=== PATIENT | female | born 1960 | race Caucasian/White ===

== ENCOUNTER 2021-12-26 23:59 | Inpatient (IN) | payer OTHER ==
[2021-12-27] MEDS ORDERED: Zolpidem Tartrate 5 MG TAB PO PRN (00:56)
[2021-12-27] MEDS ORDERED: Senokot S 8.6-50 MG TAB PO PRN (00:56)
[2021-12-27] MEDS ORDERED: Calcium Carbonate 500 MG ChewTAB PO PRN (00:56)
[2021-12-27] MEDS ORDERED: HYDROcodone/Acetaminophen 5/325 mg Tablet PO PRN (00:56)
[2021-12-27] MEDS ORDERED: Ondansetron PF 4 MG/2 ML Vial IVP PRN (00:56)
[2021-12-27] MEDS ORDERED: Acetaminophen 325 MG TAB PO PRN (00:56)
[2021-12-27] MEDS ORDERED: Guaifenesin DM 100-10/5 ML UDCUP PO PRN (00:56)
[2021-12-27] MEDS ORDERED: Ketorolac Tromethamine 30 MG/ML VIAL IVP SCH (01:00)
[2021-12-27] MEDS ORDERED: Morphine 4 MG/ML VIAL SLOW IVP PRN (01:00)
[2021-12-27] MEDS ORDERED: Lactated Ringer's 500 ML IV SCH (01:00)
[2021-12-27 01:06] VITALS: BMI 23.7
[2021-12-27] MEDS ORDERED: Metoprolol Tartrate 5 MG/5 ML VIAL IVP SCH (02:15)
[2021-12-27] MEDS ORDERED: Sodium Chloride 0.9% 500 ML IV SCH ×2 (02:15→12:30)
[2021-12-27 05:03] LABS: ALT (SGPT) 30 U/L (8-55); AST (SGOT) 28 U/L (5-34); Albumin 3.2 g/dL (3.4-4.8); Alkaline Phosphatase 51 U/L (40-110); Anion Gap 10 mmol/L (10-20); BUN (Urea Nitrogen) 8 mg/dL (9.8-20.1); Bilirubin, Total 1.3 mg/dL (0.2-1.2); CRP (Inflammatory) 20.74 mg/dL (= or < 0.5); Calc. Creatinine Clearance 95 mL/min (70-130); Calcium 8.2 mg/dL (7.8-10.44); Carbon Dioxide 24 mmol/L (23-31); Chloride 108 mmol/L (98-107); Estimated GFR 100; Globulin 2.3 g/dL (2.4-3.5); Glucose 83 mg/dL (80-115); Magnesium 1.7 mg/dL (1.6-2.6); Potassium 3.3 mmol/L (3.5-5.1); Protein, Total 5.5 g/dL (5.8-8.1); Sodium 139 mmol/L (136-145)
[2021-12-27 05:17] LABS: #Monocytes 0.8 10x3/uL (0.0-1.1); #Neutrophils 8.7 10x3/uL (1.5-8.4); %Basophils 0.1 % (0.0-2.0); %Lymphocytes 14.2 % (18.0-47.0); %Monocytes 7.3 % (0.0-10.0); Hemoglobin 11.5 g/dL (12.0-15.5); Mean Corpuscular HGB CONC 33.6 g/dL (32.0-36.0); Mean Corpuscular Hemoglobin 29.2 pg (27.0-33.0); Mean Corpuscular Volume 86.8 fl (81.6-98.3); Mean Platelet Volume 9.8 fl (7.4-10.4); Platelet Count 136 10x3/uL (150-450); RBC Distribution Width 13.6 % (11.5-14.5); Red Blood Cell (RBC) Count 3.94 10x6/uL (3.90-5.03); White Blood Cell (WBC) Count 11.1 10x3/uL (3.5-10.5)
[2021-12-27] MEDS: Levothyroxine Sodium 25 MCG TAB PO SCH (05:23)
[2021-12-27 05:29] LABS: CKMB 2.1 ng/mL (0-6.6)
[2021-12-27] MEDS ORDERED: Potassium Chloride 20 MEQ TAB PO SCH ×2 (06:00→09:00)
[2021-12-27] MEDS ORDERED: Digoxin 0.5 MG/2 ML AMP SLOW IVP SCH ×2 (06:00→12:00)
[2021-12-27] MEDS ORDERED: Magnesium Sulfate/D5W 1 GM/100 ML BAG IVPB SCH (06:00)
[2021-12-27 07:54] LABS: Bilirubin Neg (Negative); Blood, Urine 50 (Negative); Clarity Clear (Clear); Glucose, Urine (Dipstick) Normal (Negative); Ketone, Urine 15 mg/dL (Negative); Leukocyte Negative (Negative); Nitrite Negative (Negative); Protein, Urine (Dipstick) Negative (Neg-Trace); Specific Gravity, Urine 1.005 (1.005-1.030); Urobilinogen Normal mg/dL (Less than 2)
[2021-12-27 08:28] LABS: RBC/HPF 0-3 HPF (0-3)
[2021-12-27 08:29] LABS: Bacteria/HPF Rare-Few HPF (None Seen); Squamous Epithelial 0-3 HPF (0-3); WBC/HPF 0-3 HPF (0-3)
[2021-12-27] MEDS ORDERED: Metoprolol Tartrate 25 MG TAB PO SCH (09:00)
[2021-12-27] MEDS ORDERED: Hydrochlorothiazide 25 MG TAB PO SCH (09:00)
[2021-12-27] MEDS ORDERED: [UNRECOGNIZED DRUG - OTHER] PO SCH (09:00)
[2021-12-27] MEDS ORDERED: VITAMIN C PO SCH (09:00)
[2021-12-27] MEDS ORDERED: BIOTIN PO SCH (09:00)
[2021-12-27] MEDS ORDERED: VITAMIN E 400 UNIT PO SCH (09:00)
[2021-12-27] MEDS ORDERED: Aspirin 81 mg Enteric Coated Tablet ONE (09:32)
[2021-12-27] MEDS: Vit A,C & E/Lutein/Minerals Tablet PO SCH (09:38)
[2021-12-27] MEDS: Aspirin 81 mg Enteric Coated Tablet PO SCH (09:38)
[2021-12-27] MEDS: Folic Acid 1 MG TAB PO SCH (09:38)
[2021-12-27] MEDS: Cholecalciferol 1,000 UNITS (25 MCG) TAB PO SCH (09:38)
[2021-12-27] MEDS: Multivitamin W/ Minerals 1 TAB PO SCH (09:38)
[2021-12-27 12:50] LABS: CKMB 1.5 ng/mL (0-6.6)
[2021-12-27] MEDS ORDERED: Methotrexate Sodium 2.5 MG TAB PO SCH ×2 (18:15→21:00)
[2021-12-27] MEDS ORDERED: Digoxin 0.125 MG TAB PO SCH (19:00)
[2021-12-27] MEDS ORDERED: Enoxaparin Sodium 40 MG/0.4 ML SYRINGE SC SCH (21:00)
[2021-12-27] MEDS: Magnesium Oxide 400 MG TAB PO SCH (21:33)
[2021-12-27] MEDS: Sodium Chloride 0.9% 1,000 ML IV SCH (23:57)
[2021-12-28] MEDS: Sodium Chloride 0.9% 1,000 ML IV SCH ×3 (02:35→21:23)
[2021-12-28] MEDS: Levothyroxine Sodium 25 MCG TAB PO SCH (05:23)
[2021-12-28 07:16] LABS: CKMB 1.8 ng/mL (0-6.6)
[2021-12-28] MEDS: Folic Acid 1 MG TAB PO SCH (08:29)
[2021-12-28] MEDS: Cholecalciferol 1,000 UNITS (25 MCG) TAB PO SCH (08:29)
[2021-12-28] MEDS: Vit A,C & E/Lutein/Minerals Tablet PO SCH (08:30)
[2021-12-28] MEDS: Multivitamin W/ Minerals 1 TAB PO SCH (08:30)
[2021-12-28] MEDS: Aspirin 81 mg Enteric Coated Tablet PO SCH (08:46)
[2021-12-28 08:59] LABS: #Monocytes 0.6 10x3/uL (0.0-1.1); #Neutrophils 6.5 10x3/uL (1.5-8.4); %Basophils 0.1 % (0.0-2.0); %Eosinophils 0.4 % (0.0-6.0); %Lymphocytes 13.7 % (18.0-47.0); %Neutrophils 78.6 % (40.0-75.0); Hemoglobin 11.3 g/dL (12.0-15.5); Mean Corpuscular HGB CONC 34.5 g/dL (32.0-36.0); Mean Corpuscular Hemoglobin 30.3 pg (27.0-33.0); Mean Corpuscular Volume 87.9 fl (81.6-98.3); Mean Platelet Volume 10.2 fl (7.4-10.4); Platelet Count 146 10x3/uL (150-450); RBC Distribution Width 13.6 % (11.5-14.5); Red Blood Cell (RBC) Count 3.73 10x6/uL (3.90-5.03); White Blood Cell (WBC) Count 8.2 10x3/uL (3.5-10.5)
[2021-12-28 09:16] LABS: Anion Gap 12 mmol/L (10-20); BUN (Urea Nitrogen) 5 mg/dL (9.8-20.1); Calc. Creatinine Clearance 89 mL/min (70-130); Calcium 8.3 mg/dL (7.8-10.44); Carbon Dioxide 25 mmol/L (23-31); Chloride 107 mmol/L (98-107); Estimated GFR 99; Glucose 96 mg/dL (80-115); Potassium 3.7 mmol/L (3.5-5.1); Sodium 140 mmol/L (136-145)
[2021-12-28] MEDS ORDERED: Sodium Chloride 0.9% 400 ML IV SCH (10:00)
[2021-12-28] MEDS ORDERED: Digoxin 0.5 MG/2 ML AMP SLOW IVP SCH ×2 (10:00→11:30)
[2021-12-28] MEDS ORDERED: Dronedarone HCl 400 MG TAB PO SCH (10:00)
[2021-12-28] MEDS ORDERED: Digoxin 0.125 MG TAB PO SCH (12:30)
[2021-12-28] MEDS ORDERED: Metoprolol Tartrate 25 MG TAB PO SCH (12:30)
[2021-12-28] MEDS: Magnesium Oxide 400 MG TAB PO SCH (21:21)
[2021-12-28] MEDS: Dronedarone HCl 400 MG TAB PO SCH (21:21)
[2021-12-28] MEDS: Apixaban 5 MG TAB PO SCH (21:21)
[2021-12-28] MEDS: Metoprolol Tartrate 25 MG TAB PO SCH (21:22)
[2021-12-29] MEDS: Sodium Chloride 0.9% 1,000 ML IV SCH ×2 (06:10→19:07)
[2021-12-29] MEDS: Levothyroxine Sodium 25 MCG TAB PO SCH (06:10)
[2021-12-29] MEDS: Apixaban 5 MG TAB PO SCH (08:32)
[2021-12-29] MEDS: Cholecalciferol 1,000 UNITS (25 MCG) TAB PO SCH (08:32)
[2021-12-29] MEDS: Aspirin 81 mg Enteric Coated Tablet PO SCH (08:32)
[2021-12-29] MEDS: Metoprolol Tartrate 25 MG TAB PO SCH (08:33)
[2021-12-29] MEDS: Multivitamin W/ Minerals 1 TAB PO SCH (08:33)
[2021-12-29] MEDS: Folic Acid 1 MG TAB PO SCH (08:33)
[2021-12-29] MEDS: Vit A,C & E/Lutein/Minerals Tablet PO SCH (08:33)
[2021-12-29] MEDS: Dronedarone HCl 400 MG TAB PO SCH (08:33)
[2021-12-29] MEDS ORDERED: Digoxin 0.125 MG TAB PO SCH (09:00)
[2021-12-29 16:37] VITALS: BP 108/59; TEMP 98.9
== END 2021-12-29 19:54 | disposition home or self-care (01) | DRG 281 ==
LOC: CSHTELE 23:59 → UNDOADMIN 23:59 → CSHTELE 12-27 05:56
PROVIDERS: ADMIT Student in an Organized Health Care Education/Training Program; ATTEND Internal Medicine
DX: I48.0 Paroxysmal atrial fibrillation (principal); I21.A1 Myocardial infarction type 2; I31.8 Other specified diseases of pericardium; I48.92 Unspecified atrial flutter; Z20.822 Contact with and (suspected) exposure to COVID-19; R07.89 Other chest pain; E89.0 Postprocedural hypothyroidism; E87.6 Hypokalemia; R07.81 Pleurodynia; D72.829 Elevated white blood cell count, unspecified; M94.0 Chondrocostal junction syndrome [Tietze]; M06.9 Rheumatoid arthritis, unspecified; Z79.899 Other long term (current) drug therapy; Z79.890 Hormone replacement therapy; Z91.048 Other nonmedicinal substance allergy status; Z88.0 Allergy status to penicillin; Z88.2 Allergy status to sulfonamides; Z90.89 Acquired absence of other organs; Z85.820 Personal history of malignant melanoma of skin; Z87.891 Personal history of nicotine dependence; Z82.49 Family history of ischemic heart disease and other diseases of the circulatory system
CPT/HCPCS: 36415; 76705; 80048; 80053; 81001; 82553; 83735; 84439; 84443; 84484; 85025; 86140; 93005; 93010; 93306; J1160; J1650; J1885; J2405; J3475; J7030; J7050; J7120; J8610

== ENCOUNTER 2022-01-05 03:47 | Emergency (ER) | payer OTHER ==
[2022-01-05] MEDS ORDERED: Ondansetron PF 4 MG/2 ML Vial ONE (04:05)
[2022-01-05] MEDS ORDERED: Diltiazem 125 MG/25 ML ONE (04:17)
[2022-01-05 04:29] LABS: #Monocytes 0.8 10x3/uL (0.0-1.1); #Neutrophils 15.6 10x3/uL (1.5-8.4); %Basophils 0.2 % (0.0-2.0); %Lymphocytes 8.2 % (18.0-47.0); %Monocytes 4.5 % (0.0-10.0); %Neutrophils 85.7 % (40.0-75.0); ALT (SGPT) 234 U/L (8-55); AST (SGOT) 124 U/L (5-34); Albumin 3.7 g/dL (3.4-4.8); Alkaline Phosphatase 122 U/L (40-110); Anion Gap 16 mmol/L (10-20); BUN (Urea Nitrogen) 16 mg/dL (9.8-20.1); Bilirubin, Total 1.1 mg/dL (0.2-1.2); CK (CPK) 28 U/L (29-168); Calc. Creatinine Clearance 0 mL/min (70-130); Calcium 8.6 mg/dL (7.8-10.44); Carbon Dioxide 26 mmol/L (23-31); Chloride 87 mmol/L (98-107); Estimated GFR 85; Globulin 2.3 g/dL (2.4-3.5); Glucose 158 mg/dL (80-115); Hemoglobin 11.7 g/dL (12.0-15.5); Lipase 14 U/L (8-78); Mean Corpuscular HGB CONC 34.4 g/dL (32.0-36.0); Mean Corpuscular Hemoglobin 29.7 pg (27.0-33.0); Mean Corpuscular Volume 86.3 fl (81.6-98.3); Mean Platelet Volume 9.4 fl (7.4-10.4); Platelet Count 533 10x3/uL (150-450); Potassium 3.3 mmol/L (3.5-5.1); RBC Distribution Width 13.2 % (11.5-14.5); Red Blood Cell (RBC) Count 3.94 10x6/uL (3.90-5.03); Sodium 126 mmol/L (136-145); White Blood Cell (WBC) Count 18.1 10x3/uL (3.5-10.5)
[2022-01-05 04:57] LABS: SARS-CoV-2 NAA Rapid Test Not Detected (NotDetected)
[2022-01-05 05:08] LABS: Digoxin 0.34 ng/mL (0.8-2.0)
[2022-01-05 05:30] LABS: Bilirubin Neg (Negative); Blood, Urine 150 (Negative); Clarity Clear (Clear); Glucose, Urine (Dipstick) Normal (Negative); Ketone, Urine Negative (Negative); Leukocyte Negative (Negative); Nitrite Negative (Negative); Protein, Urine (Dipstick) 100 mg/dl (Neg-Trace)
[2022-01-05 05:42] LABS: Bacteria/HPF Rare-Few HPF (None Seen); Squamous Epithelial 0-3 HPF (0-3); WBC/HPF 0-3 HPF (0-3)
[2022-01-05] MEDS ORDERED: Ketorolac Tromethamine 30 MG/ML VIAL ONE (05:53)
[2022-01-05 07:18] LABS: Lactic Acid 2.6 mmol/L (0.5-2.2)
[2022-01-05] MEDS ORDERED: Iopamidol 370 76% 100 ML VIAL ONE (10:05)
== END 2022-01-05 08:11 | disposition short-term general hospital (02) ==
LOC: CSHERS 03:47
DX: I31.39 Other pericardial effusion (noninflammatory) (principal); J90 Pleural effusion, not elsewhere classified; E86.0 Dehydration; I48.91 Unspecified atrial fibrillation; Z20.822 Contact with and (suspected) exposure to COVID-19
CPT/HCPCS: 36415; 51701; 71045; 71275; 80053; 80162; 81003; 81015; 82550; 83605; 83690; 84484; 85025; 87040; 93005; 96365; 96366; 96375; J1885; J2405; Q9967; U0002

== ENCOUNTER 2024-01-22 09:53 | Outpatient (CLI) | payer MEDICARE, OTHER | END 2024-01-22 09:54 | disposition home or self-care (01) | LOC: CSHMAMMO 09:53 | PROVIDERS: ATTEND Family Medicine | DX: Z12.31 Encounter for screening mammogram for malignant neoplasm of breast (principal); Z78.0 Asymptomatic menopausal state; Z80.3 Family history of malignant neoplasm of breast; M85.851 Other specified disorders of bone density and structure, right thigh; M85.852 Other specified disorders of bone density and structure, left thigh; Z85.820 Personal history of malignant melanoma of skin; Z91.89 Other specified personal risk factors, not elsewhere classified | CPT/HCPCS: 77063; 77067; 77080 ==